=== PATIENT | male | born 2000 | race Caucasian/White ===

== ENCOUNTER 2021-08-02 18:35 | Emergency (ER) | payer MEDICAID ==
[~2021-08-02] VITALS: Ht 172.7 cm; Wt 91.6 kg
[2021-08-02] MEDS ORDERED: HYDR-4902 PO (19:39)
[2021-08-02] MEDS ORDERED: AMOX250C3 PO (19:39)
[2021-08-02] MEDS ORDERED: HYDROcodone-ACET 10/325MG TAB PO ONE (19:45)
[2021-08-02 19:58] VITALS: BP 96/57
[2021-08-03] MEDS ORDERED: AMOX500C2 PO (13:41)
== END 2021-08-02 21:09 | disposition home or self-care (01) ==
LOC: ER 18:35
DX: K02.9 Dental caries, unspecified (principal)

== ENCOUNTER 2021-10-05 20:10 | Emergency (ER) | payer MEDICAID ==
[~2021-10-05] VITALS: Ht 170.2 cm; Wt 81.6 kg
[~2021-10-05 20:10] MED LIST: AMOX500C2 PO; HYDR-4902 PO
[2021-10-05 22:53] LABS: Basophils # (auto) 0 10 ^3/uL (0-0.2); Basophils % (auto) 0.2 % (0.0-2.0); Eosinophils # (auto) 0.1 10 ^3/uL (0-0.8); Eosinophils % (auto) 0.9 % (0.0-7.0); Hematocrit 37.3 % (41.0-53.0); Hemoglobin 12.9 g/dL (13.5-17.5); Lymphocytes # (auto) 2.1 10 ^3/uL (0.4-5.4); Lymphocytes % (auto) 24.2 % (10.0-50.0); Mean Corpuscular Hemoglobin 30.2 pg (28.0-32.0); Mean Corpuscular Hgb Conc. 34.6 g/dL (32.0-36.0); Mean Corpuscular Volume 87.3 fL (80.0-100.0); Monocytes # (auto) 0.7 10 ^3/uL (0-1.3); Monocytes % (auto) 7.7 % (0.0-12.0); Neutrophils # (auto) 5.9 10 ^3/uL (1.6-8.6); Red Blood Cells 4.27 10^6/uL (4.5-5.90); Red Cell Distribution Width 13.6 % (11.8-14.3); White Blood Cell 8.7 10^3/uL (4.4-10.8)
[2021-10-05 23:12] LABS: Alanine Aminotransferase 24 U/L (16-61); Albumin 3.8 g/dL (3.4-5.0); Anion Gap 9 (5-15); Aspartate Aminotransferase 14 U/L (15-37); BUN/Creatinine Ratio 12.3; Blood Urea Nitrogen 9 mg/dL (7-18); Calcium 8.7 mg/dL (8.5-10.1); Carbon Dioxide 24 mmol/L (21-32); Chloride 107 mmol/L (98-107); GFR African American 171 mL/min; GFR Non-African American 142 mL/min; Glucose 115 mg/dL (74-106); Potassium 3.5 mmol/L (3.5-5.1); Salicylate < 1.7 mg/dL (2.8-20.0); Sodium 140 mmol/L (136-145)
[2021-10-05 23:15] LABS: Alkaline Phosphatase 76 U/L (45-117); Bilirubin, Total 0.4 mg/dL (0.2-1.0); Total Protein 6.8 g/dL (6.4-8.2)
[2021-10-05 23:21] LABS: Acetaminophen < 2.0 ug/mL (10-30); Blood Alcohol < 3.0 mg/dL (0-5)
[2021-10-06 09:05] LABS: Alcohol, Urine < 3.0 mg/dL (0-10); Amphetamine Screen, Urine NEGATIVE (NEGATIVE); Barbiturate Scree,Urine NEGATIVE (NEGATIVE); Benzodiazephine Screen, Urine NEGATIVE (NEGATIVE); Cannabinoid Screen, Urine NEGATIVE (NEGATIVE); Cocaine Screen, Urine NEGATIVE (NEGATIVE); Opiate Scree,Urine NEGATIVE (NEGATIVE); Phencyclidine Screen, Urine NEGATIVE (NEGATIVE)
[2021-10-06] MEDS ORDERED: MILK OF MAGNESIA 30ML SUSP PO ONE (12:45)
[2021-10-06] MEDS ORDERED: ACETAMINOPHEN 500 MG TAB PO ONE (18:15)
[2021-10-07 09:36] VITALS: BP 105/72
== END 2021-10-07 19:10 | disposition left against medical advice (07) ==
LOC: EDBD 20:10 → EDUNIT# 20:10 → ER 20:10
DX: S00.01XA Abrasion of scalp, initial encounter (principal); R45.851 Suicidal ideations; F20.9 Schizophrenia, unspecified; Z20.822 Contact with and (suspected) exposure to COVID-19; X58.XXXA Exposure to other specified factors, initial encounter; Y93.89 Activity, other specified; Y92.89 Other specified places as the place of occurrence of the external cause; Y99.8 Other external cause status
CPT/HCPCS: 36415; 74018; 80053; 80307; 80320; 80329; 85025